=== PATIENT | male | born 1935 | race Caucasian/White ===

== ENCOUNTER 2016-04-23 14:20 | Emergency (ER) | payer MEDICARE, OTHER ==
[2016-04-23 14:59] VITALS: BP 145/71
--- NOTE | 2016-04-23 15:49 | UC ---
Respiratory Complaint HPI - HPI Summary HPI Summary: Cough and chest congestion for 7 days no fevers - History of Current Complaint Chief Complaint: UCRespiratory Stated Complaint: CONGESTION Hx Obtained From: Patient Onset/Duration: Gradual Onset, Lasting Days - 7, Still Present Timing: Constant Severity Initially: Mild Severity Currently: Mild Pain Intensity: 6 Pain Scale Used: 0-10 Numeric Character: Cough: Nonproductive Aggravating Factors: Nothing Alleviating Factors: Nothing Associated Signs And Symptoms: Positive: URI, Nasal Congestion - Allergies/Home Medications Allergies/Adverse Reactions: Allergies Allergy/AdvReac Type Severity Reaction Status Date / Time Penicillins Allergy SEVERE Verified 04/23/16 14:54 HEADACHE Sulfa Antibiotics Allergy SEVERE Verified 04/23/16 14:54 Headache Home Medications: Home Medications Aspirin [Aspirin 81 MG TAB] 81 mg PO 04/23/16 [History] Simvastatin [Zocor 5 MG-] 5 mg PO DAILY 04/23/16 [History Confirmed 04/23/16] PMH/Surg Hx/FS Hx/Imm Hx Previously Healthy: No Endocrine History Of: Reports: Diabetes - "borderline" Denies: Thyroid Disease Cardiovascular History Of: Reports: Cardiac Disorders, Hypertension - MEDICATION , Atrial Fibrillation Respiratory History Of: Denies: COPD, Asthma GI/ History Of: Denies: Ulcer - Surgical History Surgical History: Yes Surgery Procedure, Year, and Place: 09/2011 LEFT CARPAL TUNNEL RELEASE, [facility]. 2001 RIGHT SHOULDER REPAIR,[facility]. 1991 LEFT INGUINAL HERNIA REPAIR, [facility]. right carpal repair, bilat cataracts - Family History Known Family History: Positive: Hypertension - Social History Occupation: Retired Lives: With Family Alcohol Use: Daily Alcohol Amount: 2 mixed drinks daily Substance Use Type: None Smoking Status (MU): Never Smoked Tobacco Have You Smoked in the Last Year: No Review of Systems Constitutional: Negative Skin: Negative Eyes: Negative ENT: Negative Respiratory: Cough Cardiovascular: Negative Gastrointestinal: Negative Genitourinary: Negative Motor: Negative Neurovascular: Negative Musculoskeletal: Negative Neurological: Negative Psychological: Negative All Other Systems Reviewed And Are Negative: Yes Physical Exam Triage Information Reviewed: Yes Appearance: Well-Appearing, No Pain Distress, Well-Nourished Vital Signs: Initial Vital Signs Temp 98.2 F 04/23/16 14:57 Pulse 58 04/23/16 14:57 Resp 16 04/23/16 14:57 BP 145/71 04/23/16 14:57 Pulse Ox 95 04/23/16 14:57 Vital Signs Reviewed: Yes Eye Exam: Normal Eyes: Positive: Conjunctiva Inflamed ENT Exam: Normal ENT: Positive: Normal ENT inspection, Hearing grossly normal, Pharynx normal, TMs normal. Negative: Nasal congestion, Nasal drainage, Tonsillar swelling, Tonsillar exudate, Trismus, Muffled/hoarse voice Dental Exam: Normal Neck exam: Normal Neck: Positive: Supple, Nontender, No Lymphadenopathy Respiratory Exam: Normal Respiratory: Positive: Chest non-tender, Lungs clear, Normal breath sounds, No respiratory distress, No accessory muscle use Cardiovascular Exam: Normal Cardiovascular: Positive: RRR, No Murmur, Pulses Normal, Brisk Capillary Refill Musculoskeletal Exam: Normal Musculoskeletal: Positive: Strength Intact, ROM Intact, No Edema Neurological Exam: Normal Neurological: Positive: Alert, Muscle Tone Normal Psychological Exam: Normal Skin Exam: Normal UC Diagnostic Evaluation - Laboratory O2 Sat by Pulse Oximetry: 95 Respiratory Course/Dx - Course Course Of Treatment: Dash eating plan to assist in managing hypertension, zithromax and tessalon, increase fluids follow with pcp for blood pressure re- check - Differential Dx/Diagnosis Differential Diagnosis/HQI/PQRI: Asthma, Bronchitis, Laryngitis, Sinusitis, Tuberculosis Provider Diagnoses: Bronchitis, High Blood pressure with diagnosis hypertension Discharge - Discharge Plan Condition: Stable Disposition: HOME Prescriptions: Azithromycin TAB* [Zithromax TAB (Z-DON) 250 mg #6 tabs] 2 tab PO .TODAY, THEN 1 DAILY #1 don Benzonatate CAP* [Tessalon 100 MG CAP*] 100 mg PO TID PRN #40 cap PRN Reason: cough Patient Education Materials: DASH Eating Plan (ED), Hypertension (ED), Cold Symptoms (ED) Referrals: Mohan Young MD [Primary Care Provider] - 1 Week (for bp re-check)
== END 2016-04-23 16:00 | disposition home or self-care (01) ==
LOC: UCEAST 14:20
DX: J40 Bronchitis, not specified as acute or chronic (principal); I10 Essential (primary) hypertension; Z88.0 Allergy status to penicillin; Z88.2 Allergy status to sulfonamides
CPT/HCPCS: 99212; G0463

== ENCOUNTER 2018-12-04 09:00 | Inpatient (IN) | payer MEDICARE, OTHER ==
--- NOTE | 2018-11-21 16:44 | HP ---
HISTORY AND PHYSICAL: DATE OF ADMISSION/SURGERY: 12/04/18 DATE OF OFFICE VISIT: 11/21/18 SURGEON: Marti Chne MD * (DICTATED BY HILDA RODRIGUEZ) PROCEDURE: Left total hip arthroplasty. CHIEF COMPLAINT: Left hip pain. HISTORY OF PRESENT ILLNESS: Mr. Miranda is an 83-year-old gentleman with continued complaints of left hip pain. He has failed conservative treatment and elected to proceed with a left total hip arthroplasty. PAST MEDICAL HISTORY: Diabetes, hypertension, history of AFib, and high cholesterol. PAST SURGICAL HISTORY: Hernia repair, right shoulder arthroscopy, cataract removal, and bilateral carpal tunnel release. CURRENT MEDICATIONS: 1. Amlodipine 5 mg 2 by mouth daily. 2. Finasteride 5 mg a day. 3. Tamsulosin 0.4 mg a day. 4. Klor-Con 25 mEq a day. 5. Indapamide 5 mg a day. 6. Simvastatin 20 mg a day. 7. Metformin 500 mg 2 tabs twice a day. 8. Ibuprofen as needed. ALLERGIES: To PENICILLIN and SULFA. FAMILY HISTORY: Coronary artery disease. SOCIAL HISTORY: He is an 83-year-old gentleman, lives with his . He does not smoke or use drugs. Uses occasional alcohol. REVIEW OF SYSTEMS: A complete 14-point review of systems was reviewed with the patient. Positive for diabetes. He denies history of DVT, PE, hepatitis, HIV, or anesthesia problems. PHYSICAL EXAMINATION GENERAL: He is well developed, well nourished, in no acute distress. VITAL SIGNS: He stands 70 inches tall, weighs 193 pounds. Blood pressure is 136/88, heart rate is 74. HEENT: Normocephalic, atraumatic. NECK: Supple. No palpable lymph nodes. PULMONARY: The lungs are clear to auscultation bilaterally. CARDIO: Regular rate and rhythm. Strong S1, S2. ABDOMEN: Soft, nontender, nondistended. NEUROLOGICAL: He is alert and oriented x3. MUSCULOSKELETAL: Left lower extremity: The skin is intact. There are no open wounds or abrasions. He walks with an antalgic-type gait favoring his left hip. He has 85 degrees of hip flexion, which reproduces groin pain. He lacks 10 degrees from neutral and has no internal rotation, 20 degrees of external rotation. He has a 2+ dorsalis pedis pulse. He is able to dorsiflex and plantarflex and has intact sensation. ASSESSMENT AND PLAN: Mr. Miranda is an 83-year-old gentleman with end-stage osteoarthritis of the left hip. He has failed conservative treatment and elected to proceed with a left total hip arthroplasty. The surgery is scheduled for 12/04/[address] Chen discussed the risks and benefits of the surgery at today's visit and all of his questions were answered. He will follow up with Dr. Chen 2 weeks after the surgery. HILDA RODRIGUEZ [id number]/[facility] #: [id number] JESUS
[~2018-12-04 09:00] MED LIST: Acetaminophen TAB* 325 MG PO ONE; Buffered Lidocaine 1% SYRIN* 1 ML/SYRINGE INTRADERM ONE; Lactated Ringers 1000 ML Bag* 1,000 ML IV SCH; celeCOXIB CAP* 100 MG PO ONE
[2018-12-04] MEDS ORDERED: celeCOXIB CAP* 100 MG ONE (09:40)
[2018-12-04] MEDS ORDERED: Acetaminophen TAB* 325 MG ONE (09:41)
[2018-12-04] MEDS ORDERED: Clindamycin 900 MG/D5W BAG(*) 900 MG/50 ML BAG IVPB ONE (09:41)
--- OUTSIDE RECORDS SUMMARY | 2018-12-04 10:08 | XMS REPORT | Continuity of Care Document ---
:1935 External Reference #:[id number] Author Name Nohemy Sanford N.P. (transmitted by agent of provider Alethea Sanchez) Address [address] 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 Onset: 10/2018 region and thigh Social History Type Date Description Comments Sex Unknown ETOH Use consumes 1-2 glasses of wine per day Tobacco Use Start: Unknown Patient has never smoked Recreational Drug Use Denies Drug Use Smoking Status Reviewed: 11/19/18 Patient has never smoked Exercise Type/Frequency Exercises regularly walks & plays squash (on hold until surgery) Allergies, Adverse Reactions, Alerts Active Allergies Reaction Severity Comments Date Penicillin 06/12/2017 Sulfa Antibiotics 08/18/2017 Medications Active Medications SIG Qnty Indications Ordering Date Provider Tramadol HCL 1 tablet every 6 42tabs Jessee Mera 10/15/2018 50mg hours as needed MD Tablets for pain Amlodipine Besylate 2 by mouth every 180tabs Zac Carballo 11/08/2017 day Rosas Fiore 5mg Tablets Finasteride 1 tab by mouth Chuck Garza, 5mg daily MD Tablets Tamsulosin HCL 1 tab by mouth Chuck Garza, 0.4mg daily MD Capsules Klor-Con/Ef take 1 tab in Mohan Young MD 25Meq water daily Tablets Efferv Simvastatin 1 tab by mouth Mohan Young MD 20mg daily Tablets Metformin HCL take 2 tabs by Mohan Young MD 500mg mouth twice daily Tablets Aspirin Ec Low Dose 1 by mouth every Unknown day ( on hold 81mg Tablets DR beginning 10/21/18) Indapamide 5MG Take one tablet by Unknown mouth daily Medications Administered in Office Medication SIG Qnty Indications Ordering Provider Date Celestone 3 mg and 3mg Bina Zurita, 08/24/2012 Injection M.D. Immunizations Description No Information Available Vital Signs Date Vital Result Comment 11/19/2018 8:34am Height 70 inches 5'10" Weight 195.50 lb Heart Rate 64 /min L. radial, regular BP Systolic Sitting 122 mmHg LA, reg cuff BP Diastolic Sitting 62 mmHg LA, reg cuff BP Systolic Standing 130 mmHg LA, reg cuff BP Diastolic Standing 70 mmHg LA, reg cuff BMI (Body Mass Index) 28.0 kg/m2 Ejection Fraction 60-65% 09/25/2017 10/15/2018 3:00pm Height 70 inches 5'10" Weight 192.00 lb Heart Rate 74 /min BP Systolic 122 mmHg BP Diastolic 84 mmHg Respiratory Rate 16 /min Body Temperature 97.5 F Pain Level 3 BMI (Body Mass Index) 27.5 kg/m2 Results Description No Information Available Procedures Date Code Description Status 11/19/2018 77432 EKG Tracing & Interpretation Completed 08/16/2018 78380 Amb.BP Monitor/Phys Interp&Report Completed Medical Devices Description No Information Available Encounters Type Date Location Provider Dx Diagnosis Office Visit 10/15/2018 [facility] Marti Chen, M25.552 [facility] Un[facility] primary osteoarthritis, left hip Assessments Date Code Description Provider 11/19/2018 I10 Essential (primary) hypertension Nohemy Sanford N.P. 11/19/2018 I44.0 Atrioventricular block, first degree Nohemy Sanford N.P. 11/19/2018 R94.31 Abnormal electrocardiogram [ECG] [EKG] Julian Pace.PBrenda 11/19/2018 E78.00 Pure hypercholesterolemia, unspecified Nohemy Sanford N.PBrenda 10/15/2018 M25.552 Pain in left hip Marti Chen M.D. 10/15/2018 M16.12 Unilateral primary osteoarthritis, left Marti Chen M.D. hip 08/16/2018 I10 Essential (primary) hypertension Zac Fiore M.D. Plan of Treatment Future Appointment(s):12/04/2018 12:30 pm - Tom Carlos PA-C at [facility] at Uyfxfx9112/04/2018 12:30 pm - HILDA Webster at [facility] at [id number]/04/2018 12:30 pm - Marti Chen M.D. at [facility] at Cxbtrt0211/21/2018 9:00 am - Marti Chen M.D. at [facility] at Eiumch3511/19/2018 - Nohemy Sanford, N.P.I10 Essential (primary) hypertensionFollow up:[facility] 03/2019Recommendations:BP controlled.I44.0 Atrioventricular block, first shwanoC70.31 Abnormal electrocardiogram [ECG] [EKG ]E78.00 Pure hypercholesterolemia, unspecifiedRecommendations:Triglycerides high - try cutting back carbs Functional Status Description No Information Available Mental Status Description No Information Available Referrals Description No Information Available
--- OUTSIDE RECORDS SUMMARY | 2018-12-04 10:08 | XMS REPORT | Continuity of Care Document ---
:1935 External Reference #:[id number] Author Name Marti Chen M.D. 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 Onset: 10/2018 region and thigh Social History Type Date Description Comments Sex Unknown ETOH Use consumes 1-2 glasses of wine per day Tobacco Use Start: Unknown Patient has never smoked Recreational Drug Use Denies Drug Use Smoking Status Reviewed: 11/21/18 Patient has never smoked Exercise Type/Frequency Exercises regularly walks & plays squash (on hold until surgery) Allergies, Adverse Reactions, Alerts Active Allergies Reaction Severity Comments Date Penicillin 06/12/2017 Sulfa Antibiotics 08/18/2017 Medications Active Medications SIG Qnty Indications Ordering Provider Date Amlodipine Besylate 2 by mouth every 180tabs Zac Carballo 11/08/2017 5mg day Rosas Fiore Tablets Finasteride 1 tab by mouth Chuck Garza, 5mg Tablets daily Tamsulosin HCL 1 tab by mouth Chuck Garza, 0.4mg daily Capsules Klor-Con/Ef take 1 tab in Mohan Young MD 25Meq water daily Tablets Efferv Simvastatin 1 tab by mouth Mohan Young MD 20mg daily Tablets Metformin HCL take 2 tabs by Mohan Young MD 500mg mouth twice Tablets daily Indapamide 5MG Take one tablet Unknown by mouth daily Ibuprofen 2 tabs by mouth Unknown 200mg every 6 hours as Capsules needed History Medications Tramadol HCL 1 tablet every 6 42tabs Jessee Mera MD 10/15/2018 - 50mg hours as needed 11/20/2018 Tablets for pain Medications Administered in Office Medication SIG Qnty Indications Ordering Provider Date Celestone 3 mg and 3mg Bina Zurita, 08/24/2012 Injection M.DBrenda Immunizations Description No Information Available Vital Signs Date Vital Result Comment 11/21/2018 8:54am Height 70 inches 5'10" Weight 193.00 lb Heart Rate 74 /min BP Systolic 136 mmHg BP Diastolic 88 mmHg Respiratory Rate 16 /min Body Temperature 97.9 F Pain Level 0 BMI (Body Mass Index) 27.7 kg/m2 11/19/2018 8:34am Height 70 inches 5'10" Weight 195.50 lb Heart Rate 64 /min L. radial, regular BP Systolic Sitting 122 mmHg LA, reg cuff BP Diastolic Sitting 62 mmHg LA, reg cuff BP Systolic Standing 130 mmHg LA, reg cuff BP Diastolic Standing 70 mmHg LA, reg cuff BMI (Body Mass Index) 28.0 kg/m2 Ejection Fraction 60-65% 09/25/2017 Results Description No Information Available Procedures Date Code Description Status 11/19/2018 43566 EKG Tracing & Interpretation Completed 08/16/2018 35800 Amb.BP Monitor/Phys Interp&Report Completed Medical Devices Description No Information Available Encounters Type Date Location Provider Dx Diagnosis Office Visit 10/15/2018 [facility] Marti Chen, M25.552 Pain in left hip 2:30p at [facility] M16.12 Unilateral primary osteoarthritis, left hip Assessments Date Code Description Provider 11/21/2018 M25.552 Pain in left hip Marti Chen M.D. 11/21/2018 M16.12 Unilateral primary osteoarthritis, left Marti Chen M.D. hip 11/19/2018 I44.0 Atrioventricular block, first degree Zac Fiore M.D. 11/19/2018 I10 Essential (primary) hypertension Nohemy Sanford N.P. 11/19/2018 I44.0 Atrioventricular block, first degree Nohemy Sanford N.P. 11/19/2018 R94.31 Abnormal electrocardiogram [ECG] [EKG] Nohemy CisnerosBrenda Sanford, N.P. 11/19/2018 E78.00 Pure hypercholesterolemia, unspecified Nohemy AmeliaBrenda Sanford, N.P. 11/19/2018 Z01.810 Encounter for preprocedural Nohemy SBrenda Sanford N.P. cardiovascular examination 11/19/2018 M16.12 Unilateral primary osteoarthritis, left Nohemy SBrenda Sanford N.P. hip 10/15/2018 M25.552 Pain in left hip Marti Chen M.D. 10/15/2018 M16.12 Unilateral primary osteoarthritis, left Marti Chen M.D. hip 08/16/2018 I10 Essential (primary) hypertension Zac Fiore M.D. Plan of Treatment Future Appointment(s):12/14/2018 8:15 am - Marti Chen M.D. at [facility] at Swjhxe2512/04/2018 12:30 pm - Tom Carlos PA-C at [facility] at Qaxcum6212/04/2018 12:30 pm - HILDA Webster at [facility] at Ggxrso0112/04/2018 12:30 pm - Marti Chen M.D. at [facility] at Ufkbpn4911/21/2018 - Marti Chen M.D.M25.552 Pain in left hipFollow up:Follow up: 2 weeks after masojuqR11.12 Unilateral primary osteoarthritis, left hip Functional Status Description No Information Available Mental Status Description No Information Available Referrals Description No Information Available
--- OUTSIDE RECORDS SUMMARY | 2018-12-04 10:08 | XMS REPORT | Continuity of Care Document ---
:1935 External Reference #:[id number] Author Name Marti Chen M.D. 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 Onset: 10/2018 region and thigh Social History Type Date Description Comments Sex Unknown ETOH Use consumes 1-2 glasses of wine per day Tobacco Use Start: Unknown Patient has never smoked Recreational Drug Use Denies Drug Use Smoking Status Reviewed: 10/15/18 Patient has never smoked Exercise Type/Frequency Exercises regularly walks & plays squash Allergies, Adverse Reactions, Alerts Active Allergies Reaction Severity Comments Date Penicillin 06/12/2017 Sulfa Antibiotics 08/18/2017 Medications Active Medications SIG Qnty Indications Ordering Provider Date Tramadol HCL 1 tablet every 6 42tabs Jessee Mera MD 10/15/2018 50mg hours as needed Tablets for pain Amlodipine Besylate 2 by mouth every 180tabs Zac Carballo 11/08/2017 5mg day Rosas Fiore Tablets Finasteride 1 tab by mouth Chuck Garza, 5mg Tablets daily Tamsulosin HCL 1 tab by mouth Chuck Garza, 0.4mg daily Capsules Klor-Con/Ef take 1 tab in Mohan Young MD 25Meq water daily Tablets Efferv Indapamide take 1 tab by Mohan Young MD 2.5mg mouth daily Tablets Simvastatin 1 tab by mouth Mohan Young MD 20mg daily Tablets Metformin HCL take 2 tabs by Mohan Young MD 500mg mouth twice Tablets daily Aspirin Ec Low Dose 1 by mouth every Unknown day 81mg Tablets DR Medications Administered in Office Medication SIG Qnty Indications Ordering Provider Date Celestone 3 mg and 3mg Bina WebberJanesWalter, 08/24/2012 Injection M.DBrenda Immunizations Description No Information Available Vital Signs Date Vital Result Comment 10/15/2018 3:00pm Height 70 inches 5'10" Weight 192.00 lb Heart Rate 74 /min BP Systolic 122 mmHg BP Diastolic 84 mmHg Respiratory Rate 16 /min Body Temperature 97.5 F Pain Level 3 BMI (Body Mass Index) 27.5 kg/m2 04/23/2018 8:15am Height 70 inches 5'10" Weight 195.50 lb with shoes Heart Rate 60 /min BP Systolic Sitting 122 mmHg BP Diastolic Sitting 80 mmHg BP Systolic Standing 120 mmHg BP Diastolic Standing 80 mmHg BMI (Body Mass Index) 28.0 kg/m2 Results Description No Information Available Procedures Date Code Description Status 08/16/2018 26797 Amb.BP Monitor/Phys Interp&Report Completed Medical Devices Description No Information Available Encounters Type Date Location Provider Dx Diagnosis Office Visit 04/23/2018 [facility] Nohemy Sanford, I10 Essential ( primary) 8:30a N.P. hypertension R00.2 Palpitations R06.00 Dyspnea, unspecified R94.31 Abnormal electrocardiogram [ECG] [EKG] I44.0 Atrioventricular block, first degree Assessments Date Code Description Provider 10/15/2018 M25.552 Pain in left hip Marti Chen M.D. 10/15/2018 M16.12 Unilateral primary osteoarthritis, left Marti Chen M.D. hip 08/16/2018 I10 Essential (primary) hypertension Zac Fiore M.D. 04/23/2018 I10 Essential (primary) hypertension Nohemy Sanford, N.P. 04/23/2018 R00.2 Palpitations Nohemy Sanford N.P. 04/23/2018 R06.00 Dyspnea, unspecified Nohemy Sanford N.P. 04/23/2018 R94.31 Abnormal electrocardiogram [ECG] [EKG] Nohemy Sanford N.P. 04/23/2018 I44.0 Atrioventricular block, first degree Nohemy Sanford N.P. Plan of Treatment Future Appointment(s):11/21/2018 9:00 am - [facility] M[facility]D. at [facility]10/15/2018 - aMrti Chen M.D.M25.552 Pain in left hipNew Xrays:Hip Left 2 Views And Pelvis [id number] - [id number], Ordered: 10/15/18Follow up: Follow up: 7-10 days before [id number] Unilateral primary osteoarthritis, left hip Functional Status Description No Information Available Mental Status Description No Information Available Referrals Description No Information Available
[2018-12-04] MEDS ORDERED: Midazolam* 1 MG/ML 2 ML VIAL (2 MG) ONE (11:22)
[2018-12-04] MEDS ORDERED: fentaNYL* 50 MCG/ML 5 ML VIAL (250 MCG VIAL) ONE (11:22)
[2018-12-04] MEDS ORDERED: Propofol* 10 MG/ML 20 ML BTL ONE (11:46)
[2018-12-04] MEDS ORDERED: Propofol* 500 MG/50 ML BTL ONE (12:28)
[2018-12-04] MEDS ORDERED: fentaNYL* 50 MCG/ML 2 ML VIAL (100 MCG VIAL) ONE (13:00)
[2018-12-04] MEDS ORDERED: Ondansetron INJ* 2 MG/ML VIAL IV PRN ×2 (13:40→15:37)
[2018-12-04] MEDS ORDERED: diPHENhydraMINE IV* 50 MG/ML 1 ml VIAL (BENADRYL) IV PRN ×2 (13:40→15:37)
[2018-12-04] MEDS ORDERED: oxyCODONE TAB* 5 MG TAB PO PRN ×2 (13:40→15:37)
[2018-12-04] MEDS ORDERED: Naloxone* 0.4 MG/ML 1 ML VIAL IV PRN (13:40)
[2018-12-04] MEDS ORDERED: EPHEDrine (Pressors)* 50 MG/ML VIAL ONE (14:31)
[2018-12-04] MEDS ORDERED: diPHENhydraMINE PO* 25 MG PO PRN (15:37)
[2018-12-04] MEDS ORDERED: Morphine INJ* 2 MG/ML 1 ML SYRINGE (TWO MG - NEW SYRINGE VERSION) IV PRN (15:37)
[2018-12-04] MEDS ORDERED: Acetaminophen TAB* 325 MG PO PRN (15:37)
[2018-12-04] MEDS ORDERED: Ondansetron ODT TAB* 4 MG PO PRN (15:37)
[2018-12-04] MEDS ORDERED: oxyCODONE/Acetamin 5/325 MG* TAB PO PRN (15:37)
[2018-12-04] MEDS ORDERED: Magnesium Hydroxide LIQ* 30 ML UDC PO PRN (15:37)
[2018-12-04] MEDS ORDERED: Cyclobenzaprine TAB* 10 MG PO PRN (15:37)
[2018-12-04] MEDS ORDERED: HYDROmorphone INJ1* 1 MG/ML SYRINGE ONE (15:42)
[2018-12-04] MEDS: HYDROmorphone INJ1* 1 MG/ML SYRINGE IV PRN ×5 (15:43→17:00)
[2018-12-04] MEDS ORDERED: Lactated Ringers 1000 ML Bag* 1,000 ML IV SCH (16:00)
--- NOTE | 2018-12-04 16:08 | PN ---
Progress Note - Progress Note Date of Service: 12/04/18 SOAP: Dr. Godinez called in regards to the pt. He was found to have blood in the gallardo and around the meatus after surgery. Dr. Reeves recommendation at this point is to monitor the gallardo. Also to deflate the cath, push it forward and re - inflate. So long as he continues to drain to the gallardo well he states that he is not concerned.
[2018-12-04] MEDS ORDERED: oxyCODONE TAB* 5 MG TAB ONE (16:14)
[2018-12-04] MEDS ORDERED: Dextrose 50% VIAL 50 ml IV PUSH PRN (16:19)
--- NOTE | 2018-12-04 18:03 | OP ---
Operative Report - Blank - Operative Report Date of Operation: 12/04/18 Note: CELIO CASTRO 1935 Date Of Surgery: 12/04/18 Marti Chen MD Veneer Puller: Annalee STEVENS did help throughout the procedure with preparation of the hip, wound retraction, manipulation of the hip, and wound closure. Anesthesiologist: Papito HAMMONDS Anesthesia Type: Spinal Preoperative Diagnosis: Left severe degenerative osteoarthritis of the hip Postoperative Diagnosis: As above Procedure Performed: Left Total Hip Arthroplasty Complications: None Specimen: Femoral head and acetabular reamings sent to pathology. Hardware used: This is uncemented Scarlett total hip arthroplasty hardware for the femur a size 5 accolade II with 127 neck angle femoral component, for the acetabulum a size 54E trident II tritanium cluster hole shell, one 15 mm screw, for the insert a size 36E trident X3 polyethylene insert, and for the femoral head a size 36 + 0 ceramic biolox V40 femoral head. Brief history/Indication: CELIO CASTRO was known in clinic and had a history of severe left hip pain. He failed conservative treatment with anti-inflammatories , pain pills, intra-articular injections and physical therapy. He elected to undergo left total hip arthroplasty due to continued pain and decreased quality of life. Radiographs showed severe end stage osteoarthritis of the hip with bone on bone contact. Informed consent was obtained from the patient. He understood the risks of surgery included but were not limited to: bleeding, infection, damage to nearby structures, intraoperative fracture, nerve palsy, failure of the hardware, early loosening, stiffness or loss of motion, dislocation, leg length discrepancy, anesthesia complications, stroke, heart attack, blood clot and . He wished to proceed. Intra-Operative findings: Intraoperatively the patient was noted to have severe loss of cartilage of the acetabulum and femoral head. Description of the Procedure: CELIO CASTRO was identified in the preanesthesia unit. His left hip was marked as the correct operative side. Informed consent was signed and placed in the chart. The patient was taken to the operating room and placed under anesthesia without complication. A gallardo catheter was placed. The patient was placed on the peg board with all bony prominences well padded. The left lower extremity was prepped and draped in the usual sterile fashion. Preoperative time-out was made to correctly identify the patient, side and site. Appropriate intraoperative antibiotics were given within one hour of incision. A standard posterior incision was made and carried sharply down to the lateral fascia. A new 10 blade was used to make an incision in the fascia in line with the skin incision. A charnley retractor was placed. The piriformis and conjoined tendons were identified and elevated off the posterolateral femur using electrocautery. These were tagged with number 5 Ethibond. Next electrocautery was used to make a posterolateral capsular flap and this was tagged with number 5 Ethibonds. The hip was carefully dislocated. Lesser trochanter to the center of the femoral head was measured at 65 mm. The oscillating saw was used to make the femoral neck cut. The femoral head was carefully removed. The femur was retracted anteriorly and the acetabular retractors were placed. Long-handled knife was used to sharply remove any remaining labrum from the acetabular rim. The acetabulum was sequentially reamed up to a size 54. A bleeding subchondral bone bed was obtained. A trial liner was placed and had excellent fit and stability. A 54E cup with a single screw was placed and had excellent stability with appropriate anteversion and abduction angle. A size 36E polyethylene liner was impacted into the acetabular shell. The liner was checked for stability and was stable. Next attention was turned to preparation of the femoral canal. A canal finder was used to enter the proximal femur. The femoral canal was sequentially broached up to a size 5 femoral broach trial. A trial neck and 36 + 0 trial femoral head was chosen. Lesser trochanter to center of the femoral head measurement was satisfactory. The hip was reduced and taken through a range of motion. The hip was stable in all positions with good soft tissue tension and appropriate leg lengths. The hip was dislocated and all trials were removed. The final implant chosen was a size 5 accolade II stem. This stem was impacted into the femoral canal without difficulty. The stem was stable with appropriate anteversion. The femoral head chosen was a 36 + 0 ceramic head. The head was impacted onto the femoral neck without difficulty. The final lesser trochanter to center of the femoral head measurement was satisfactory. The hip was reduced and taken through a range of motion. The hip was stable in all positions with good soft tissue tension and appropriate leg lengths. The hip was copiously irrigated with sterile saline. The previously tagged capsule and tendons were repaired to the posterolateral femur through two trochanteric drill holes. The lateral fascia layer was closed using number 1 vicryls. The rest of the incision was closed in a layered fashion using 0 and 2-0 vicryls. The skin was closed using 3-0 monocryl suture and Dermabond. Sterile adaptic, 4x4s and paper tape was used to cover the incision. The patients anesthesia was reversed without difficulty. He was taken to the PACU in stable condition. Intended weight-bearing will be as tolerated with posterior hip precautions.
[2018-12-04] MEDS: oxyCODONE/Acetamin 5/325 MG* TAB PO PRN (18:47)
[2018-12-04] MEDS: Tamsulosin CAP* 0.4 MG PO SCH (20:25)
[2018-12-04] MEDS: Docusate CAP* 100 MG PO SCH (20:26)
[2018-12-04] MEDS: Magnesium Hydroxide LIQ* 30 ML UDC PO SCH (20:29)
[2018-12-04] MEDS ORDERED: Atorvastatin* 20 MG TAB PO SCH (21:00)
[2018-12-04] MEDS: Clindamycin 600 MG/D5W BAG(*) 600 MG/50 ML BAG IV SCH (21:52)
[2018-12-04] MEDS: Insulin LISPRO* 1 UNITS UNIT SUBCUT SCH (22:00)
--- NOTE | 2018-12-04 22:11 | CONS ---
CONSULTATION REPORT: DATE OF CONSULT: 12/04/18 REASON FOR CONSULT: General co-medical management. HISTORY OF PRESENT ILLNESS: This is an 83-year-old male with a past medical history significant for diabetes, hypertension, and AFib, who was admitted on 12/04/18 status post a left total hip arthroplasty after failing outpatient management. The patient was seen in the PACU. Pain is currently 4/10 in the left hip. He was awake, alert, and oriented. Able to move all extremities and generally, in no acute distress. PAST MEDICAL HISTORY: Diabetes, hypertension, AFib, high cholesterol, osteoarthritis, BPH, lumbar stenosis, and peripheral neuropathy. PAST SURGICAL HISTORY: Hernia repair, right shoulder arthroscopy, cataract removal, bilateral carpal tunnel release, right rotator cuff repair. MEDICATIONS: 1. Metformin 1000 mg p.o. b.i.d. 2. Simvastatin 40 mg p.o. bedtime. 3. Potassium chloride 20 mEq p.o. q.a.m. 4. Indapamide 5 mg p.o. q.a.m. 5. Finasteride 1 tab p.o. q.a.m. 6. Tamsulosin 0.4 mg p.o. q.1700. 7. Ibuprofen 400 mg p.o. b.i.d. 8. Amlodipine 5 mg p.o. q.a.m. ALLERGIES: To PENICILLIN and SULFA. FAMILY HISTORY: Significant for coronary artery disease. SOCIAL HISTORY: Denied ever smoking cigarettes and no recreational substance use. Drinks about 2 glasses of wine a day. REVIEW OF SYSTEMS: An 11-point system review was completed, was positive for left hip pain and baseline numbness to bilateral lower extremities. Negative for chest pain, shortness of breath, abdominal pain, nausea, vomiting. PHYSICAL EXAM: Vital Signs: Temperature is 97.2 Fahrenheit, 63 pulse, 15 respirations, 99% oxygen on 2 L, 121/66 blood pressure. General: This is a well- developed, older gentleman seen resting in bed in the PACU and in no acute distress. Eyes: Conjunctivae pink and moist. PERRLA. EOMs intact. ENT: Mucous membranes moist. Oropharynx clear. Neck: Supple. Cardiac: S1, S2 present. Heart rate regular. No murmurs, gallops, or rubs appreciated. Pulmonary: Lung sounds clear throughout bilaterally on 2 L of oxygen via nasal cannula. No accessory muscle use noted. Abdomen: Soft, nontender, nondistended. Positive bowel sounds x4. Genitourinary: De Jesus draining cordova red urine with no clots. Musculoskeletal: Able to dorsi, plantar flex. Cap refill has been 3 seconds. Left leg is slightly weak, though he has been able to move all extremities. No clubbing or cyanosis appreciated. Skin: Dressing intact to left lateral hip. No other open areas or rashes appreciated. Neurological: Baseline decreased sensation to bilateral lower extremities. No focal deficits appreciated. Psych: He is alert and oriented x3. Thought content organized. DIAGNOSTIC STUDIES/LAB DATA: POC glucose of 155. Intraoperative left hip x-ray showed limited portable intraop out of view of the pelvis during the left hip arthroplasty. ASSESSMENT AND PLAN: My impression, this is an 83-year-old male with a past medical history significant for diabetes, hypertension, and atrial fibrillation , who was admitted on 12/04/18 status post a left total hip replacement after failing outpatient therapy. 1. Left total hip replacement. PT and OT, pain and bowel regimen per Ortho. Plan is to discharge the patient to home. 2. Benign prostatic hyperplasia. The patient had some bleeding around De Jesus catheter after insertion. Dr. Garza notified nurse to deflate balloon and advance catheter further to ensure it is in correct placement. May continue finasteride and tamsulosin. 3. Hypertension. Currently, systolic blood pressures are in the one teens to 120s/60s. To hold indapamide during admission, though may continue it upon discharge. Continue amlodipine. 4. Diabetes, type 2. Last blood pressure was 155. Hold metformin while in the hospital. Fingersticks a.c. and h.s. with a sliding scale insulin, lispro. 5. Hypercholesterolemia. Continue simvastatin. 6. DVT prophylaxis. SCDs and apixaban as per Ortho. 7. Code status is full code. Thank you for allowing us to participate in the plan of care of this patient. We will follow during this admission. [id number] #: [id number] JESUS
[2018-12-05] MEDS: Clindamycin 600 MG/D5W BAG(*) 600 MG/50 ML BAG IV SCH ×2 (05:38→13:19)
[2018-12-05 07:29] LABS: Hematocrit 32 % (42-52); Hemoglobin 11.2 g/dL (14.0-18.0); Platelet Count 180 10^3/uL (150-450)
[2018-12-05 07:46] LABS: BUN/Creatinine Ratio 23.2 (8-20); Calcium 8.3 mg/dL (8.6-10.3); EGFR African American 66.6 (>60); Potassium 3.4 mmol/L (3.5-5.0)
[2018-12-05] MEDS: Docusate CAP* 100 MG PO SCH (08:17)
[2018-12-05] MEDS: Insulin LISPRO* 1 UNITS UNIT SUBCUT SCH ×2 (08:18→12:25)
[2018-12-05] MEDS: Magnesium Hydroxide LIQ* 30 ML UDC PO SCH (08:19)
[2018-12-05] MEDS ORDERED: amLODIPine TAB* 5 MG PO SCH (09:00)
[2018-12-05] MEDS ORDERED: Apixaban* 2.5 MG TAB PO SCH (09:00)
[2018-12-05] MEDS ORDERED: Vitamin THERAPEUTIC TAB PO SCH (09:00)
[2018-12-05] MEDS ORDERED: Finasteride TAB* 5 MG PO SCH (09:00)
--- NOTE | 2018-12-05 09:15 | PN ---
Subjective Date of Service: 12/05/18 Interval History: Patient seen sitting up in bed. Reports minimal pain to left hip. Feels motivated to do therapy in order to be discharged to home later today. In no acute distress. Denies chest pain, shortness of breath, headaches, fever, chills , abdominal pain, nausea, vomiting, bowel issues. Has not voided since gallardo catheter removal, staff reported blood at meatus with catheter removal. Family History: Unchanged from Admission Social History: Unchanged from Admission Past Medical History: Unchanged from Admission Objective Active Medications: Acetaminophen (Tylenol Tab*) 650 mg PO Q8HR PRN PRN Reason: MILD PAIN or TEMP > 100.4 Amlodipine Besylate (Norvasc Tab*) 5 mg PO QAM [facility] Last Admin: 12/05/18 08:17 Dose: 5 mg Apixaban (Eliquis*) 2.5 mg PO BID [facility] Last Admin: 12/05/18 08:17 Dose: 2.5 mg Atorvastatin Calcium (Lipitor*) 20 mg PO BEDTIME [facility] Last Admin: 12/04/18 20:26 Dose: 20 mg Bisacodyl (Dulcolax Supp*) 10 mg VT DAILY PRN PRN Reason: CONSTIPATION Cyclobenzaprine HCl (Flexeril Tab*) 10 mg PO Q6H PRN PRN Reason: SPASMS Dextrose (Dextrose 50% Vial 50 Ml*) 25 ml IV PUSH .FOR FS < 60 - SS PRN PRN Reason: FS < 60 Diphenhydramine HCl (Benadryl Iv*) 25 mg IV Q6H PRN PRN Reason: PRURITIS Diphenhydramine HCl (Benadryl Po*) 25 mg PO Q6H PRN PRN Reason: PRURITIS Docusate Sodium (Colace Cap*) 100 mg PO BID [facility] Last Admin: 12/05/18 08:17 Dose: 100 mg Finasteride (Proscar Tab*) 5 mg PO QAM [facility] Last Admin: 12/05/18 08:16 Dose: 5 mg Clindamycin HCl/Dextrose (Cleocin 600 Mg/50 Ml(*)) 600 mg in 50 mls @ 100 mls/ hr IV Q8H [facility] Stop: 12/05/18 13:59 Last Admin: 12/05/18 05:38 Dose: 100 mls/hr Lactated Ringer's (Lactated Ringers 1000 Ml Bag*) 1,000 mls @ 100 mls/hr IV PER RATE [facility] Last Admin: 12/05/18 04:55 Dose: 100 mls/hr Insulin Human Lispro (Humalog*) 0 units SUBCUT ACHS [facility]; Protocol Last Admin: 12/05/18 08:18 Dose: 4 unit Lactulose (Lactulose*) 30 ml PO BID PRN PRN Reason: CONSTIPATION Magnesium Hydroxide (Milk Of Magnesia Liq*) 30 ml PO BID [facility] Last Admin: 12/05/18 08:19 Dose: 30 ml Magnesium Hydroxide (Milk Of Magnesia Liq*) 30 ml PO Q6H PRN PRN Reason: CONSTIPATION Morphine Sulfate (Morphine Inj (Syringe))*) 2 mg IV Q4H PRN PRN Reason: Pain - Unrelieved Multivitamins (Theragran Tab*) 1 tab PO DAILY [facility] Last Admin: 12/05/18 08:18 Dose: 1 tab Ondansetron HCl (Zofran Inj*) 4 mg IV Q6H PRN PRN Reason: NAUSEA Ondansetron HCl (Zofran Odt Tab*) 4 mg PO Q6H PRN PRN Reason: NAUSEA Oxycodone HCl (Roxycodone Tab*) 10 mg PO Q4H PRN PRN Reason: Pain - Breakthrough Last Admin: 12/04/18 20:34 Dose: 10 mg Oxycodone/Acetaminophen (Percocet 5/325 Tab*) 1 tab PO Q4H PRN PRN Reason: PAIN - MODERATE Last Admin: 12/05/18 00:33 Dose: 1 tab Oxycodone/Acetaminophen (Percocet 5/325 Tab*) 2 tab PO Q4H PRN PRN Reason: PAIN - SEVERE Last Admin: 12/04/18 18:47 Dose: 2 tab Tamsulosin HCl (Flomax Cap*) 0.4 mg PO 1700 [facility] Last Admin: 12/04/18 20:25 Dose: 0.4 mg Vital Signs - 8 hr 12/05/18 12/05/18 12/05/18 01:50 02:30 03:17 Temperature 97.9 F Pulse Rate 67 Respiratory 16 16 Rate Blood Pressure 122/57 (mmHg) O2 Sat by Pulse 94 93 Oximetry 12/05/18 08:21 Temperature 98.5 F Pulse Rate 72 Respiratory 18 Rate Blood Pressure 128/53 (mmHg) O2 Sat by Pulse 94 Oximetry Oxygen Devices in Use Now: None Appearance: Well developed gentleman seen sitting up in bed, no acute distress. Eyes: No Scleral Icterus, PERRLA Ears/Nose/Mouth/Throat: NL Teeth, Lips, Gums, Clear Oropharnyx, - - Mucous membranes dry. Neck: NL Appearance and Movements; NL JVP, Trachea Midline Respiratory: Symmetrical Chest Expansion and Respiratory Effort, Clear to Auscultation Cardiovascular: NL Sounds; No Murmurs; No JVD, RRR, - - +1-2 non-pitting edema to left thigh. Abdominal: - - Firmly distended, non-tender, normoactive +BSx4. Lymphatic: No Cervical Adenopathy Extremities: No Clubbing, Cyanosis, - - +1-2 non-pitting edema to left thigh. Skin: No Rash or Ulcers, No Nodules or Sclerosis, - - Dressing to left hip is clean, dry and intact. Neurological: Alert and Oriented x 3, NL Sensation, NL Gait Lines/Tubes/Other Access: Clean, Dry and Intact Peripheral IV Result Diagrams: 12/05/18 07:23 12/05/18 07:23 Assess/Plan/Problems-Billing Assessment: This is an 83 with a PMH of HTN and afib who was admitted on 12/04/18 s/p a left total hip replacement. - Patient Problems (1) Status post total replacement of left hip Current Visit: Yes Status: Acute Onset Date: 12/04/18 Code(s): Z96.642 - PRESENCE OF LEFT ARTIFICIAL HIP JOINT SNOMED Code(s): 150582614649 Comment: -PT/OT. Pain and bowel management as per ortho. Patient is intending to be discharged to home today if all goes well. -Bolusing patient with 500ml normal saline due to dry mucuous membanes and slightly elevated creatinine. (2) BPH (benign prostatic hyperplasia) Current Visit: Yes Status: Acute Code(s): N40.0 - BENIGN PROSTATIC HYPERPLASIA WITHOUT LOWER URINRY TRACT SYMP SNOMED Code(s): 077692723 Comment: -Patient had a potentially traumatic gallardo insertion in the OR, had been bleeding through the gallardo catheter. Per reports of nursing, urine was clear this morning though noted blood at the meatus during catheter removal. Continue tamsulosin and finasteride. (3) HTN (hypertension) Current Visit: Yes Status: Acute Code(s): I10 - ESSENTIAL (PRIMARY) HYPERTENSION SNOMED Code(s): 14268522 Comment: -SBP currently in the 120's. Continue amlodipine. Hold indapamide, though may resume upon discharge. (4) Diabetes type 2, controlled Current Visit: Yes Status: Acute Code(s): E11.9 - TYPE 2 DIABETES MELLITUS WITHOUT COMPLICATIONS SNOMED Code(s): 44969824 Comment: -Hold metformin while in hospital, though may resume upon discharge. -Fingersticks ACHS with sliding scale lispro. (5) Hypercholesterolemia Current Visit: Yes Status: Acute Code(s): E78.00 - PURE HYPERCHOLESTEROLEMIA , UNSPECIFIED SNOMED Code(s): 11561369 Comment: -Continue simvastatin. (6) DVT prophylaxis Current Visit: Yes Status: Acute Code(s): Z29.9 - ENCOUNTER FOR PROPHYLACTIC MEASURES, UNSPECIFIED SNOMED Code(s): 095425206 Comment: -SCD's and apixaban per ortho. (7) Full code status Current Visit: Yes Status: Acute Code(s): Z78.9 - OTHER SPECIFIED HEALTH STATUS SNOMED Code(s): 841784854 Status and Disposition: CONDITION: Fair DISPOSITION: Inpatient. Will sign off at this time. Please call for any questions. Attending: Nohemi Avery
[2018-12-05] MEDS ORDERED: NS 0.9% 500 ML* 500 ML IV ONE (09:24)
[2018-12-05] MEDS: oxyCODONE/Acetamin 5/325 MG* TAB PO PRN (09:40)
[2018-12-05] MEDS ORDERED: Potassium Chlor TAB* 20 MEQ TAB.ER PO SCH (12:00)
[2018-12-05] MEDS ORDERED: traMADol TAB* 50 MG PO PRN (12:17)
--- NOTE | 2018-12-05 12:19 | PN ---
Progress Note - Progress Note Date of Service: 12/05/18 SOAP: Subjective: [] Pt seen and examined oob in chair. Denies CP, SOB, dizziness or nausea. Hip pain is well controlled. Desires DC home today Objective: []Gen: Appears well, NAD LLE: Left hip dressing CDI, thigh soft, DF/PF intact, DP2+, sensation decreased distally consistent with baseline Calves supple and nontender Assessment: []POD 1 sp LTH Plan: []WBAT PT/OT posterior hip precautions 500 ml fluid bolus. Urinate without difficulty this morning Plan for DC home today Vital Signs Temp 98.1 F 12/05/18 11:51 Pulse 66 12/05/18 11:51 Resp 12 12/05/18 11:51 BP 121/55 12/05/18 11:51 Pulse Ox 96 12/05/18 11:51 Intake & Output 12/04/18 12/05/18 12/05/18 18:59 06:59 18:59 Intake Total 1900 960 240 Output Total 400 1100 100 Balance 1500 -140 140 Weight 192 lb 2 oz Intake: IV Fluids 1900 LR 1900 Oral 960 240 Output: Urine 100 De Jesus 200 1100 Estimated Blood Loss 200 Laboratory Last Values Hgb 11.2 g/dL (14.0-18.0) L 12/05/18 07:23 Hct 32 % (42-52) L 12/05/18 07:23 Plt Count 180 10^3/uL (150-450) 12/05/18 07:23 MPV 8.0 fL (7.4-10.4) 12/05/18 07:23 Sodium 136 mmol/L (135-145) 12/05/18 07:23 Potassium 3.4 mmol/L (3.5-5.0) L 12/05/18 07:23 Chloride 100 mmol/L (101-111) L 12/05/18 07:23 Carbon Dioxide 28 mmol/L (22-32) 12/05/18 07:23 Anion Gap 8 mmol/L (2-11) 12/05/18 07:23 BUN 29 mg/dL (6-24) H 12/05/18 07:23 Creatinine 1.25 mg/dL (0.67-1.17) H 12/05/18 07:23 Est GFR ( Amer) 66.6 (>60) 12/05/18 07:23 Est GFR (Non-Af Amer) 55.0 (>60) 12/05/18 07:23 BUN/Creatinine Ratio 23.2 (8-20) H 12/05/18 07:23 Glucose 210 mg/dL (70-100) H 12/05/18 07:23 POC Glucose (mg/dL) 209 mg/dL (70-100) H 12/05/18 11:24 Calcium 8.3 mg/dL (8.6-10.3) L 12/05/18 07:23
--- NOTE | 2018-12-05 12:26 | DS ---
Orthopedic Discharge Summary - Discharge Summary Date of Admission:12/04/18 Date of Discharge: 12/05/18 Date of Surgery: 12/04/18 Attending Orthopedic Provider: Dr Chen Pre-operative Diagnosis: Left hip osteoarthritis Operative Procedure: left total hip replacement Disposition of Patient: Home with VNS Condition of Patient: stable History: CELIO CASTRO is a 83 year old M with years of increasingly severe left hip pain. Patient has failed conservative management and has elected to undergo a left total hip replacement Hospital Course: CELIO was admitted to [facility] on 12/04/18. Patient underwent a left total hip replacement without complication followed by a brief recovery in PACU and transfer to the Short Stay Surgical Unit in stable condition. Our hospitalist service, physical therapy and occupational therapy also participated in this patients care. Post-op day 1: patient was alert and in no acute distress. Dressing was clean, dry and intact. Operative extremity dorsiflexion and plantarflexion intact, sensation intact to light touch distally , DP2+. Prior to discharge: dressing was changed, incision was clean, dry and intact. Patient was deemed to be medically and orthopedically stable for discharge. Physical therapy goals were met. Home Medications Medication Instructions Recorded Confirmed Type metFORMIN* [Glucophage 500 MG TAB 1,000 mg PO BID 05/12/13 12/04/18 History *] Indapamide TAB* [Lozol TAB*] 5 mg PO QAM 05/14/14 12/04/18 History Potassium Chlor TAB* [Potassium 20 meq PO QAM 05/14/14 12/04/18 History Chlor TAB 20 MEQ*] Finasteride TAB* [Proscar TAB*] 1 tab PO QAM 01/10/16 12/04/18 History Tamsulosin CAP* [Flomax CAP*] 1 tab PO 1700 01/10/16 12/04/18 History Simvastatin [Zocor 5 MG-] 40 mg PO BEDTIME 04/23/16 12/04/18 History Amlodipine Besylate [Norvasc] 5 mg PO QAM 11/21/18 12/04/18 History Acetaminophen TAB* [Tylenol TAB*] 650 mg PO Q8HR PRN tab 12/05/18 Rx Apixaban* [Eliquis*] 2.5 mg PO BID #60 tab 12/05/18 Rx Docusate CAP* [Colace Cap*] 100 mg PO BID cap 12/05/18 Rx oxyCODONE/Acetamin 5/325 MG* 1 tab PO Q4H PRN tab MDD 10 12/05/18 Rx [Percocet 5/325 TAB*] oxyCODONE/Acetamin 5/325 MG* 2 tab PO Q4H PRN #70 tab MDD 10 12/05/18 Rx [Percocet 5/325 TAB*] Discharge Instructions following Orthopedic Surgery: Activity: * Weight Bearing as tolerated * Continue physical therapy and occupational therapy exercises as shown * Home PT Hip replacements: Continue Hip Precautions- do not cross legs or bend greater than 90 degrees/squat Wound care: * OK to shower on post-op day 3, no bathing, swimming, or submerging wound. * Use gentle soap, pat dry. Cover with gauze, SHARMAINE wrap or tape. * Visiting home nurse to do wound checks. Call Orthopedic office for: * Increased drainage * Redness * Increased pain * Fever Go to ER with shortness of breath or chest pain. Diet: * Regular diet * Increase fluids and fiber to prevent constipation. * Continue to use stool softeners, call office if no bowel motion within 48 hours. Medications See Home Medication List in your packet for medications that you should take after discharge. DVT prophylaxis: increases bleeding tendency Eliquis Dosin.5 mg, 1 tab every 12 hours x 30 days Pain Control: Percocet Dosin/325 mg 1 tab for moderate pain and 2 tabs for severe pain by mouth every 4-6 hours as needed for pain. Maximum of 10 tabs per day. Hold for sedation, wean off as soon as pain allows Please note that Percocet contains Tylenol (acetaminophen). Maximum daily dose of Tylenol is 4000 mg from all sources. Antibiotics are required prior to any dental work. FOLLOW UP: Follow up with [Gustavo] Within 10-14 days, call for appointment Please call our office with any questions or concerns ([phone]) RX to [facility] [place]
[2018-12-05] MEDS ORDERED: Potassium Chloride* LIQUID 20 MEQ/15 ML UDC PO SCH (12:30)
[2018-12-05 16:16] VITALS: BP 134/68
[2018-12-05] MEDS: Tamsulosin CAP* 0.4 MG PO SCH (16:50)
[2018-12-06] MEDS ORDERED: Bisacodyl SUPP* 10 MG SUPP PR PRN (15:38)
== END 2018-12-05 18:05 | disposition home health service (06) | DRG 470 ==
LOC: AA 10:05 → SSU 18:11
PROVIDERS: ADMIT Orthopaedic Surgery Adult Reconstructive Orthopaedic Surgery; ATTEND Orthopaedic Surgery Adult Reconstructive Orthopaedic Surgery
PROC: 0SRB04A Replacement of Left Hip Joint with Ceramic on Polyethylene Synthetic Substitute, Uncemented, Open Approach (ICD-10-PCS; principal; 2018-12-04 13:00)
DX: M16.12 Unilateral primary osteoarthritis, left hip (principal); I10 Essential (primary) hypertension; I48.91 Unspecified atrial fibrillation; E78.00 Pure hypercholesterolemia, unspecified; N40.0 Benign prostatic hyperplasia without lower urinary tract symptoms; M48.061 Spinal stenosis, lumbar region without neurogenic claudication; E11.42 Type 2 diabetes mellitus with diabetic polyneuropathy; E78.5 Hyperlipidemia, unspecified; G60.9 Hereditary and idiopathic neuropathy, unspecified; M54.16 Radiculopathy, lumbar region; I44.0 Atrioventricular block, first degree; Z88.0 Allergy status to penicillin; Z88.2 Allergy status to sulfonamides; Z72.89 Other problems related to lifestyle
CPT/HCPCS: 36415; 71046; 72170; 80048; 85014; 85018; 85049; 88304; 88311; A9270-GY; C1713; C1776; G8978-GP-CJ; G8979-GP-CI; G8987-GO-CK; G8988-GO-CK; G8989-GO-CK; J1170; J2250; J2704; J3010

== ENCOUNTER 2020-07-13 05:41 | Observation (INO) ==
[2020-07-13] MEDS ORDERED: Buffered Lidocaine 1% SYRIN 1 ml INTRADERM ONE (06:00)
[2020-07-13] MEDS ORDERED: Lactated Ringers 1000 ml BAG 1,000 ML IV SCH (06:00)
[2020-07-13] MEDS ORDERED: Clindamycin 900 MG/D5W BAG 900 MG/50 ML BAG IVPB ONE (06:31)
[2020-07-13] MEDS ORDERED: Lidocaine 2% PF 5 ML VIAL ONE (06:52)
[2020-07-13] MEDS ORDERED: Ondansetron 4 mg VIAL 2 MG/ML 2 ml VIAL ONE (06:52)
[2020-07-13] MEDS ORDERED: Rocuronium 50 mg VIAL 10 mg/ml 5 ml VIAL (50 mg) ONE ×3 (06:52→10:16)
[2020-07-13] MEDS ORDERED: Dexamethasone IV 4 MG/ML VIAL 1 ml VIAL ONE (06:52)
[2020-07-13] MEDS ORDERED: fentaNYL 100 mcg/2 ml 50 MCG/ML VIAL ONE (06:52)
[2020-07-13] MEDS ORDERED: Propofol 10 MG/ML 20 ML BTL ONE (06:52)
[2020-07-13] MEDS ORDERED: Bupivacaine 0.5% SDV PF 30ML VIAL ONE (07:01)
[2020-07-13] MEDS ORDERED: Bupivacaine 0.25% SDV 30 ML ONE (07:01)
[2020-07-13] MEDS ORDERED: Lidocaine 2% PF 10 ML AMP ONE (07:02)
[2020-07-13] MEDS ORDERED: Phenylephrine 40 mcg/mL 10mL (400mcg) SYRINGE ONE (08:02)
[2020-07-13] MEDS ORDERED: EPHEDrine (Pressors) 50 MG/ML VIAL ONE (08:04)
[2020-07-13] MEDS ORDERED: Vancomycin 1,000 MG VIAL ONE (08:11)
[2020-07-13] MEDS ORDERED: Phenylephrine IV 10 MG/ML 1 ml VIAL ONE (08:21)
[2020-07-13] MEDS ORDERED: Ondansetron 4 mg VIAL 2 MG/ML 2 ml VIAL IV PRN (09:25)
[2020-07-13] MEDS ORDERED: Morphine 10 MG/ML VIAL (1 ml) IV PRN (11:21)
[2020-07-13] MEDS ORDERED: diPHENhydraMINE 25 mg TAB PO PRN (11:21)
[2020-07-13] MEDS: Lactated Ringers 1000 ml BAG 1,000 ML IV SCH ×2 (13:08→23:35)
[2020-07-13] MEDS ORDERED: Dextrose 50% Syringe 50 ml 25 GM/50 ML SYRINGE IV PUSH PRN (15:59)
[2020-07-13] MEDS: Clindamycin 600 MG/D5W BAG 600 MG/50 ML BAG IV SCH ×2 (16:32→23:35)
[2020-07-14] MEDS: oxyCODONE/Acetamin 5/325 mg TAB PO PRN ×3 (00:15→12:23)
[2020-07-14 04:50] LABS: ABS Lymphocytes 0.9 10^3/ul (1.0-4.8); ABS Monocytes 1.5 10^3/ul (0-0.8); ABS Neutrophils 10.2 10^3/ul (1.5-7.7); Hematocrit 31 % (42-52); Hemoglobin 10.4 g/dL (14.0-18.0); Lymphocyte % 6.9 %; Mean Corpuscular HGB Conc 34 g/dL (31-36); Mean Corpuscular Hemoglobin 32 pg (27-31); Mean Corpuscular Volume 95 fL (80-94); Mean Platelet Volume 8.2 fL (7.4-10.4); Platelet Count 230 10^3/uL (150-450); Red Blood Count 3.24 10^6 /uL (4.18-5.48); Red Cell Distribution Width 13 % (10-15); White Blood Count 12.7 10^3/uL (3.5-10.8)
[2020-07-14 05:08] LABS: Calcium 8.1 mg/dL (8.6-10.3); EGFR African American 54.1 (>60); EGFR Non-African American 44.7 (>60); Potassium 4.5 mmol/L (3.5-5.0)
[2020-07-14] MEDS: Clindamycin 600 MG/D5W BAG 600 MG/50 ML BAG IV SCH (08:10)
[2020-07-14 11:40] VITALS: BP 134/43
== END 2020-07-14 14:10 | disposition home or self-care (01) ==
LOC: INTOOBSV 05:41 → AA 05:41 → SSU 13:12
PROVIDERS: ADMIT Orthopaedic Surgery; ATTEND Orthopaedic Surgery